=== PATIENT | male | born 1965 | race African-American/Black ===

== ENCOUNTER 2023-08-20 12:20 | Outpatient (OUT) | payer OTHER, SELFPAY ==
--- NOTE | 2023-08-20 | XR_ITS ---
[facility] [place] [facility] [id number] Patient Name: SAUD SANTANA MRN: [id number] date: 1965 Sex: M Assigned Patient Location: RAD Current Patient Location: [facility] Accession/Order Number: [id number] Exam Date: 08/20/2023 12:35 Report Date: 08/20/2023 13:23 At the request of: NON-STAFF PHYSICIAN Procedure: XR shoulder RT min 2V STUDY: XR shoulder RT min 2V, [id number] HISTORY: Rule out dislocation per radiology recommendation COMPARISON: None FINDINGS: No acute fracture, dislocation, or suspicious osseous lesion. Moderate osteoarthritis of the acromioclavicular joint and mild osteoarthritis of the glenohumeral joint. Trace soft tissue calcification near the greater tuberosity. XR/XR shoulder RT min 2V IMPRESSION: 1. No acute osseous abnormality. 2. Shoulder osteoarthritis. 3. Minimal calcific tendinitis of the rotator cuff. Electronically authenticated by: SHANNAN HUGGINS Date: 08/20/2023 13:23
== END 2023-08-20 12:21 | disposition home or self-care (01) ==
DX: M25.511 Pain in right shoulder (principal)
CPT/HCPCS: 73030